=== PATIENT | female | born 1980 | race Caucasian/White ===

== ENCOUNTER 2021-10-23 22:17 | Emergency (ER) | payer OTHER ==
[~2021-10-23] VITALS: Ht 165.1 cm; Wt 142.4 kg
[2021-10-23 22:47] VITALS: BP 119/66
--- NOTE | 2021-10-23 23:22 | NUR ---
Dr. Beckford examining patient.
[2021-10-23] MEDS ORDERED: CEFTRIAXONE IM ONE (23:30)
[2021-10-23] MEDS ORDERED: LIDOCAINE MPF 1% IM ONE (23:30)
[2021-10-23] MEDS ORDERED: KETOROLAC 60 MG/2 ML VIAL IM ONE (23:30)
[2021-10-23] MEDS ORDERED: cefTRIAXone 1,000 MG VIAL ONE (23:36)
[2021-10-23] MEDS ORDERED: LIDOCAINE MPF 1% 5 ML ONE (23:37)
[2021-10-24] MEDS ORDERED: NAPR-54 PO (00:11)
[2021-10-24] MEDS ORDERED: NITR100C7 PO (00:11)
[2021-10-24 00:22] VITALS: BP 122/68
--- NOTE | 2021-10-24 00:22 | NUR ---
Patient discharged with v/s stable. Written and verbal after care instructions given and explained for Pyelonephritis by Dr. Beckford. Patient alert, oriented and verbalized understanding of instructions. Ambulatory with steady gait. All questions addressed prior to discharge. ID band removed. Patient advised to follow up with PMD. Rx of Naproxen and Macrobid given. Patient educated on indication of medication including possible reaction and side effects. Opportunity to ask questions provided and answered.
== END 2021-10-24 00:22 | disposition home or self-care (01) ==
LOC: MED 22:17
DX: N10 Acute pyelonephritis (principal); Z90.49 Acquired absence of other specified parts of digestive tract; Z79.899 Other long term (current) drug therapy
CPT/HCPCS: 81002; 81025; 96372; 99284; J0696; J1885; J2001

== ENCOUNTER 2022-04-02 15:18 | Emergency (ER) | payer MEDICAID, OTHER ==
[~2022-04-02] VITALS: Ht 165.1 cm; Wt 155.6 kg
[~2022-04-02 15:18] MED LIST: NAPR-54 PO; NITR100C7 PO
[2022-04-02 16:08] VITALS: BP 162/93
--- NOTE | 2022-04-02 16:16 | NUR ---
PT AMB TO BED 11
[2022-04-02] MEDS ORDERED: MORPHINE SULFATE 10 MG/ML VIAL IVP ONE (17:00)
[2022-04-02] MEDS ORDERED: ONDANSETRON 4 MG/2 ML VIAL IVP ONE (17:00)
[2022-04-02] MEDS ORDERED: NACL 0.9% 1,000 ML IV ONE (17:00)
--- NOTE | 2022-04-02 17:02 | NUR ---
41F presents to ED with c/o of ABD pain since this morning. Pt reports intermittent, cramping like, 10/10 pain that starts RLQ of the ABD and radiates to right flank. Pt reports chills, nausea, painful urination and frequency, nausea and diarrhea. Pt denies fevers, vomiting, and any medication intake today. Pt placed in gown, on bedside cardiac rn, bed set to lowest position, side rails x2.
[2022-04-02 17:35] LABS: BASOPHILS # (AUTO) 0.1 K/uL (0.00-0.22); BASOPHILS % (AUTO) 0.5 % (0.0-2.0); EOSINOPHILS # (AUTO) 0.2 K/uL (0-0.4); EOSINOPHILS % (AUTO) 1.6 % (0.0-4.0); HEMATOCRIT 41.2 % (36-48); HEMOGLOBIN 13.9 g/dL (12.0-16.0); LYMPHOCYTES # (AUTO) 1.1 K/uL (2.5-16.5); LYMPHOCYTES % (AUTO) 7.2 % (20.5-51.1); MEAN CORPUSCULAR HEMOGLOBIN 30 pg (27-31); MEAN CORPUSCULAR HGB CONC 34 g/dL (33-37); MEAN CORPUSCULAR VOLUME 88.4 fL (80-94); MONOCYTES # (AUTO) 0.7 K/uL (0.8-1.0); NEUTROPHILS # (AUTO) 12.7 K/uL (1.8-7.7); NEUTROPHILS % (AUTO) 85.7 % (42.2-75.2); PLATELET COUNT (AUTO) 280 K/uL (140-450); RED BLOOD CELL COUNT(AUTO) 4.66 MIL/uL (4.20-5.40); RED CELL DISTRIBUTION WIDTH 14.1 % (11.6-13.7); WHITE BLOOD COUNT (AUTO) 14.8 K/uL (4.8-10.8)
[2022-04-02 17:41] LABS: APPEARANCE,URINE CLEAR (CLEAR); BILIRUBIN,URINE 1+ (NEGATIVE); BLOOD, URINE 3+ (NEGATIVE); COLOR,URINE YELLOW (YELLOW); LEUKOCYTE ESTERASE ,URINE NEGATIVE (NEGATIVE); NITRITE, URINE NEGATIVE (NEGATIVE); UGLUCOSE NEGATIVE (NEGATIVE)
[2022-04-02 17:57] LABS: ALBUMIN 3.5 g/dL (3.4-5.0); ANION GAP 14.3 (8-16); CARBON DIOXIDE 26.6 mmol/L (21-32); CREATININE 0.8 mg/dL (0.6-1.3); POTASSIUM 3.9 mmol/L (3.5-5.1); TOTAL BILIRUBIN 0.3 mg/dL (0.0-1.0)
[2022-04-02 18:13] LABS: WBC,URINE 0-5 /HPF (0-5)
--- NOTE | 2022-04-02 18:32 | NUR ---
Pt taken to Ct via w/c.
--- NOTE | 2022-04-02 18:54 | NUR ---
Pt brought back from CT via w/c.
--- NOTE | 2022-04-02 19:12 | NUR ---
Pt report given to GUY Bolden. Transfer of care at this time.
[2022-04-02] MEDS ORDERED: IBUP-2213 PO (19:52)
[2022-04-02] MEDS ORDERED: ONDA-188 SL (19:52)
[2022-04-02 20:31] VITALS: BP 115/56
--- NOTE | 2022-04-02 20:33 | NUR ---
Patient discharged with v/s stable. Written and verbal after care instructions given and explained. Patient alert, oriented and verbalized understanding of instructions. Ambulatory with steady gait. All questions addressed prior to discharge. ID band removed. Patient advised to follow up with PMD. Rx of ibuprofen;zofran given. Patient educated on indication of medication including possible reaction and side effects. Opportunity to ask questions provided and answered.
== END 2022-04-02 20:33 | disposition home or self-care (01) ==
LOC: MED 15:18
DX: K43.9 Ventral hernia without obstruction or gangrene (principal); N83.202 Unspecified ovarian cyst, left side; J45.909 Unspecified asthma, uncomplicated; E11.9 Type 2 diabetes mellitus without complications; I10 Essential (primary) hypertension; Z79.899 Other long term (current) drug therapy
CPT/HCPCS: 36415; 74177; 80053; 81001; 81025; 83690; 84703; 85025; 96361; 96374; 96375; 99285; J2270; J2405; J7030; Q9967

== ENCOUNTER 2022-09-07 22:04 | Emergency (ER) | payer MEDICAID ==
[~2022-09-07] VITALS: Ht 165.1 cm; Wt 161.9 kg
[~2022-09-07 22:04] MED LIST changes: +IBUP-2213 PO; +ONDA-188 SL
[2022-09-07 22:08] VITALS: BP 150/89
--- NOTE | 2022-09-07 22:35 | NUR ---
RODY WATERS AT BEDSIDE
[2022-09-07] MEDS ORDERED: KETOROLAC 30 MG/ML VIAL IM ONE (22:40)
--- NOTE | 2022-09-07 22:40 | NUR ---
Patient received on bed lying comfortably and awake. Alert and oriented x4. No acute distress. Complained of pain on the throat with scale of 5/10. Respiration even and tachypneic.
--- NOTE | 2022-09-07 22:44 | NUR ---
X-Ray at bedside.
[2022-09-07] MEDS ORDERED: BPM/480S48 PO (23:12)
[2022-09-07] MEDS ORDERED: AMOX-999 PO (23:12)
[2022-09-07 23:21] VITALS: BP 138/77
--- NOTE | 2022-09-07 23:21 | NUR ---
Patient discharged with v/s stable. Written and verbal after care instructions given and explained. Patient alert, oriented and verbalized understanding of instructions. Ambulatory with steady gait. All questions addressed prior to discharge. ID band removed. Patient advised to follow up with PMD. Rx of Augmentin and Tussi Press B Liquid given. Patient educated on indication of medication including possible reaction and side effects. Opportunity to ask questions provided and answered.
== END 2022-09-07 23:21 | disposition home or self-care (01) ==
LOC: MED 22:04
DX: J04.0 Acute laryngitis (principal); J45.909 Unspecified asthma, uncomplicated; I10 Essential (primary) hypertension; E11.9 Type 2 diabetes mellitus without complications; Z79.4 Long term (current) use of insulin; Z79.899 Other long term (current) drug therapy
CPT/HCPCS: 71045; 96372; 99283; J1885; Q0092